=== PATIENT | male | born 1945 ===

== ENCOUNTER 2019-02-25 05:29 | Day surgery (SDC) | payer MEDICARE, MEDICAID ==
--- NOTE | 2019-02-24 11:26 | Opthalmology H&P ---
Ophthalmology H&P H&P Chief Complaint: decreased vision in right eye HPI Vision Affects Ability to: read, manage personal affairs Past Ocular History: glaucoma HPI Narrative Cataract extraction with intraocular lens implant right eye Exam Visual Acuity: OD:20/200 OS:20/25 Tension: OD 16 OS 32 Eye Exam: normal OU: external exam, palpebral fissure-width, marginal reflex distance, levator function, corneas, anterior chambers; findings: lens - pseudo OS, cataract ns OD, fundus exam Assessment/Plan Treatment Plan: cataract extraction w/ lens implant Goals of Treatment: improvement of vision, enhance quality of life Attestation Attestation The risks and benefits of the surgery as well as alternative procedures were explained to the patient in detail. Frederick Perrin MD Feb 24, 2019 11:26
--- NOTE | 2019-02-24 11:28 | Pre-Procedure Note/Attestation ---
Pre-Procedure Note/Attestation Complete Prior to Procedure Planned Procedure: right Procedure Narrative: Cataract extraction with intraocular lens implant right eye Indications for Procedure Pre-Operative Diagnosis: Nuclear sclerotic cataract right eye Attestation I attest that I discussed the nature of the procedure; its benefits; risks and complications; and alternatives (and the risks and benefits of such alternatives ), prior to the procedure, with the patient (or the patient's legal sales utility representative). I attest that, if there was a reasonable possibility of needing a blood transfusion, the patient (or the patient's legal sales utility representative) was given the [facility] standardized written summary, pursuant to the Maxim [place] Blood Safety Act ([place] Health and Safety Code # 1645, as amended). I attest that I re-evaluated the patient just prior to the surgery and that there has been no change in the patient's H&P, except as documented below: Frederick Perrin MD Feb 24, 2019 11:28
[~2019-02-25] VITALS: Ht 175.3 cm; Wt 85.7 kg
[2019-02-25] VITALS (9 sets, daily range): BP systolic 126–141; BP diastolic 67–72
[2019-02-25] MEDS ORDERED: Midazolam 2mg/2ml Inj ONE (05:30)
[2019-02-25] MEDS ORDERED: fentaNYL 100 mcg/2 mL IV ONE (05:30)
[2019-02-25] MEDS: Tropicamide 1% Opth 15ml Soln RIGHT EYE SCH ×3 (06:43→06:58)
[2019-02-25] MEDS: Tobramycin Op Soln 0.3% 5ml RIGHT EYE SCH ×3 (06:43→06:58)
[2019-02-25] MEDS: Cyclopentolate 1% Opth Sol 2ml RIGHT EYE SCH ×3 (06:43→06:59)
[2019-02-25] MEDS: Diclofenac Sod 0.1% Op Soln RIGHT EYE SCH ×3 (06:43→06:58)
[2019-02-25] MEDS: Phenylephrine 10% Opth Soln 5ml RIGHT EYE SCH ×3 (06:44→06:58)
[2019-02-25] MEDS ORDERED: DiphenhydrAMINE 50mg/ml Inj IVP PRN (06:45)
[2019-02-25] MEDS ORDERED: Atropine Sulfate 0.4mg/ml inj IVP PRN (06:45)
[2019-02-25] MEDS ORDERED: Midazolam 2mg/2ml Inj IVP PRN (06:45)
[2019-02-25] MEDS ORDERED: fentaNYL 100 mcg/2 mL IV PRN (06:45)
--- NOTE | 2019-02-25 06:50 | Anethesia Preoperative Eval ---
Anesthesia Pre-op PMH/ROS General Date of Evaluation: Feb 25, 2019 Time of Evaluation: 06:46 Anesthesiologist: ronda ASA Score: ASA 4 Mallampati Score Class I : Soft palate, uvula, fauces, pillars visible Class II: Soft palate, uvula, fauces visible Class III: Soft palate, base of uvula visible Class IV: Only hard plate visible Mallampati Classification: Class II Surgeon: cheryl Diagnosis: nuclear sclerotic cataract right eye Surgical Procedure: cataract extraction w/iol implant right eye Anesthesia History: none Social History: smoking - nonsmoker Family History: no anesthesia problems Allergies: Coded Allergies: CIPROFLOXACIN (Verified Allergy, Severe, 02/24/19) ANAPHYLACTIC SHOCK PENICILLINS (Verified Allergy, Severe, 02/24/19) ANAPHYLACTIC SHOCK Medications: see eMAR Patient NPO?: Yes Past Medical History Cardiovascular: Reports: HTN, other - hypercholsterolemia Gastrointestinal/Genitourinary: Reports: other - bph Neurologic/Psychiatric: Reports: other Endocrine: Reports: DM HEENT: Reports: cataract (R), other - ear infection Anesthesia Pre-op Phys. Exam Physician Exam Last Vital Signs Date Time Temp Pulse Resp B/P (MAP) Pulse Ox O2 Delivery O2 Flow Rate FiO2 02/25/19 06:39 97.1 67 18 134/71 95 Room Air Constitutional: NAD Neurologic: CN 2-12 intact Cardiovascular: RRR Respiratory: CTA Gastrointestinal: S/NT/ND Airway Exam Mallampati Score: Class II MO: limited Neck: decreased rom TMD: 2fb ROM: limited Anesthesia Pre-op A/P Risk Assessment & Plan Assessment: asa4 Plan: mac Status Change Before Surgery: No Pre-Antibiotics Drug: Dixie Lepe MD Feb 25, 2019 06:50
[2019-02-25 06:52] LABS: EOSINOPHILS % (AUTO) 4.9 % (0.0-3.0); HEMATOCRIT 42.8 % (42.0-52.0); HEMOGLOBIN 14.6 G/DL (14.2-18.0); LYMPHOCYTES % (AUTO) 27.2 % (20.0-45.0); MEAN CORPUSCULAR VOLUME 91 FL (80-99); MONOCYTES % (AUTO) 8.6 % (1.0-10.0); NEUTROPHILS % (AUTO) 58.3 % (45.0-75.0); PLATELET COUNT 162 K/UL (150-450); RED BLOOD COUNT 4.72 M/UL (4.70-6.10); RED CELL DISTRIBUTION WIDTH 12.5 % (11.6-14.8); WHITE BLOOD COUNT 6.2 K/UL (4.8-10.8)
[2019-02-25] MEDS ORDERED: GABAPENTIN300 MG ORAL (06:57)
[2019-02-25] MEDS ORDERED: LANTUS SOL100 UNIT/1 SUBQ (06:57)
[2019-02-25] MEDS ORDERED: CARDURA4 MG ORAL (06:57)
[2019-02-25] MEDS ORDERED: AMLODIPINE BESYL5 MG ORAL (06:57)
[2019-02-25] MEDS ORDERED: METFORMIN HCL500 M1 ORAL (06:57)
[2019-02-25] MEDS ORDERED: LISINOPRIL10 MG ORAL (06:57)
[2019-02-25] MEDS ORDERED: ATORVASTATIN CA20 MG ORAL (06:57)
[2019-02-25] MEDS ORDERED: Proparacaine 0.5% Opth Soln 15ml RIGHT EYE ONE (07:00)
[2019-02-25] MEDS ORDERED: Polysporin Opth Oint 3.5gm ONE (07:00)
[2019-02-25] MEDS ORDERED: Pred Forte 1% Opth Susp 1ml ONE (07:00)
[2019-02-25] MEDS ORDERED: Akten 3.5% 1ml Btl RIGHT EYE ONE (07:00)
[2019-02-25] MEDS ORDERED: Pilocarpine 1% Opth 15ml Soln ONE (07:00)
[2019-02-25] MEDS ORDERED: Tetracaine 0.5% Opth 4ml Soln RIGHT EYE ONE (07:00)
[2019-02-25 07:08] LABS: ANION GAP 9 mmol/L (5-15); BLOOD UREA NITROGEN 18 mg/dL (7-18); CALCIUM 9.6 MG/DL (8.5-10.1); CARBON DIOXIDE 26 MMOL/L (21-32); CHLORIDE 105 MMOL/L (98-107); CREATININE 1.2 MG/DL (0.55-1.30); POTASSIUM 3.8 MMOL/L (3.5-5.1); SODIUM 140 MMOL/L (136-145)
[2019-02-25] MEDS ORDERED: EPINEPHrine 1mg/1ml Amp ONE (07:44)
[2019-02-25] MEDS ORDERED: Povidone-Iodine 5% opth solution ONE (07:45)
[2019-02-25] MEDS ORDERED: BSS 500ml btl ONE (07:45)
[2019-02-25] MEDS ORDERED: Lidocaine 1% MPF 10mg/ml 5ml ONE (07:45)
[2019-02-25] MEDS ORDERED: Sodium Hyaluronate 14 mg/ml 0.85ml ONE (07:45)
[2019-02-25] MEDS ORDERED: BSS 15ml BTL ONE (07:45)
[2019-02-25] MEDS ORDERED: Dexamethasone 4mg/ml vial ONE (07:45)
--- NOTE | 2019-02-25 08:30 | Pre-op HX & Phy Repo 2 SIG ---
DATE OF ADMISSION: 02/25/2019 PRESURGICAL INTERNAL MEDICINE HISTORY AND PHYSICAL DATE OF SURGERY: 02/25/2019. REASON FOR EVALUATION: I was asked by Dr. Frederick Perrin to see this 73-year-old male, who is going for elective surgery on the right eye. The patient has a cataract, right eye. The patient was evaluated. Chart was reviewed at the Outpatient's Procedure Department. The patient is alert. PAST MEDICAL HISTORY: Remarkable for insulin-dependent diabetes mellitus, hypertension, history of benign prostatic hypertrophy, renal insufficiency stage II. No history of heart attack, chest pain, or palpitation. Denies history of stroke or seizures. No history of pulmonary problem. No history of GI problem. Denies history of thyroid problem or hepatitis. The patient was active and alert. SURGICAL HISTORY: Cataract, left eye and multiple laser procedures on the eye and vitrectomy. PRESENT MEDICATIONS: Include Lantus 30 units daily, metformin, lisinopril 5 mg daily, Cardura, calcium and magnesium supplement, fish oil, multivitamins, , and atorvastatin. ALLERGIES: The patient has history of allergy to penicillin and Cipro. FAMILY HISTORY: Both parents from complication of hypertension. HABITS: The patient denies history of smoke. Alcohol, [address]. PHYSICAL EXAMINATION: VITAL SIGNS: Blood pressure 134/71, temperature 97.7, pulse 67, respirations 18, and O2 saturation 95%. GENERAL: The patient is alert. SKIN: Clear, dry, and warm. No rashes. No lymph node enlargement. HEENT: Head, normocephalic and atraumatic. Ears, clear. No discharge. Eyes, full description per Dr. Frederick Perrin. Mouth, clear and moist. Tongue midline. Wears upper and lower dentures. NECK: Supple. No jugular venous distention. Carotids artery +2. Trachea midline. CHEST: No deformity or asymmetry. LUNGS: Clear to auscultation to percussion. No rales or rhonchi. HEART: Regular rate. No ectopy. No murmur. No S3, S4. ABDOMEN: Soft and benign. Liver and spleen are not enlarged. No rebound. EXTREMITIES: No peripheral edema or calf tenderness. No asymmetry. Peripheral pulse +2 on the arterial studies. NEURO SYSTEM: No asymmetry. No tremor. No nystagmus. DIAGNOSTIC DATA: Electrocardiogram done in December 2018, normal sinus rhythm, 80 beats per minute, normal ECG. Laboratory today, fasting blood sugar 103 mg/dL. Chemistry pending. The patient did not eat or drink from last night. IMPRESSION: 1. Nuclear sclerotic cataract, right eye. 2. Insulin-dependent diabetes mellitus, controlled. 3. Hypertension, controlled. 4. Benign prostatic hypertrophy. 5. Chronic kidney disease stage 2. PLAN: Cataract extraction, right eye with intraocular lens implant per Dr. Frederick Perrin. CONCLUSION: The patient has a 73-year-old male with multiple medical problems including insulin-dependent diabetes, complicated with chronic kidney disease stage 2 and history of hypertension, controlled. The patient is NPO. Normal electrocardiogram. The patient's condition optimized for surgery today. Thank you very much, Dr. Perrin, for the privilege to participate in presurgical care of this interesting patient. Eduardo Larios M.D. DR: RENE JOB#: [id number] CC:
[2019-02-25] MEDS ORDERED: Lidocaine 4% Amp ONE (08:56)
[2019-02-25] MEDS ORDERED: acetaZOLAMIDE 500mg Inj ONE (08:57)
[2019-02-25] MEDS ORDERED: NS Irrig 1000ml ONE (09:00)
[2019-02-25] MEDS ORDERED: Sterile Water Irrig 1000ml IRRIG ONE (09:00)
[2019-02-25] MEDS ORDERED: LR 1000ml ONE (09:00)
--- NOTE | 2019-02-25 09:55 | 48 Hour Post Anesthesia Eval ---
Post Anesthesia Evaluation Procedure: cataract extraction w/iol implant right eye Date of Evaluation: Feb 25, 2019 Time of Evaluation: 09:38 Blood Pressure Systolic: 133 0: 68 Pulse Rate: 70 Respiratory Rate: 18 Temperature (Fahrenheit): 97.1 O2 Sat by Pulse Oximetry: 95 Airway: patent Nausea: No Vomiting: No Pain Intensity: 0 Hydration Status: adequate Cardiopulmonary Status: stable Mental Status/LOC: patient returned to baseline Post-Anesthesia Complications: none Follow-up care needed: N/A Dixie Whyte MD Feb 25, 2019 09:55
--- NOTE | 2019-02-25 09:55 | Immediate Post-Op Evaluation ---
Immediate Post-Op Evalulation Immediate Post-Op Evalulation Procedure: cataract extraction w/iol implant right eye Date of Evaluation: Feb 25, 2019 Time of Evaluation: 09:36 IV Fluids: 200ml lr Blood Products: none Estimated Blood Loss: negligible Blood Pressure Systolic: 141 Blood Pressure Diastolic: 72 Pulse Rate: 74 Respiratory Rate: 18 O2 Sat by Pulse Oximetry: 95 Temperature (Fahrenheit): 97.1 Pain Score (1-10): 0 Nausea: No Vomiting: No Complications none Patient Status: awake, reacts, patent Hydration Status: adequate Drug: Dixie Lepe MD Feb 25, 2019 09:55
--- NOTE | 2019-02-28 10:39 | Brief Operative Note ---
Immediate Post Operative Note Operative Note Chief Complaint: blurry vision right eye Pre-op Diagnosis: Nuclear sclerotic cataract right eye Procedure: Cataract extraction with intraocular lens implant right eye Post-op Diagnosis: Pseudophakia right eye Post-op Diagnosis: same as pre-op Surgeon: Frederick Perrin MD Anesthesiologist: Dixie Anderson MD Anesthesia: MAC Specimen: none Complications: none Condition: stable Fluids: LR Estimated Blood Loss: none Drains: none Implant(s) used?: Yes - IOL-OD Frederick Perrin MD Feb 28, 2019 10:39
--- NOTE | 2019-02-28 11:24 | Operative Note - PDOC ---
Operative Note Operative Note Date of Operation/Procedure: Feb 25, 2019 Chief Complaint: blurry vision right eye Pre-op Diagnosis: Nuclear sclerotic cataract right eye Procedure: Cataract extraction with intraocular lens implant right eye Post-op Diagnosis: Pseudophakia right eye Post-op Diagnosis: same as pre-op Surgeon: Frederick Perrin MD Anesthesiologist: Dixie Anderson MD Anesthesia: MAC Specimen: none Complications: none Condition: stable Fluids: LR Estimated Blood Loss: none Drains: none Implant(s) used?: Yes - IOL-OD Indications for Procedure Nuclear sclerotic cataract right eye Description of Procedure This patient has been complaining visually significant cataract in the right eye with the best corrected visual acuity of 20/200 under moderate glare conditions worse. The patient complains of difficulties with glare in performing activities of daily living and wants to manage personal affairs with comfort and accuracy and see well enough to move with safety at home and outdoors. The risks, benefits and alternatives of the procedure were discussed with the patient in the office prior to scheduling surgery. All questions from the patient were answered after the surgical procedure was explained in detail. The risks of the procedure as explained to the patient include, but are not limited to, pain, infection, bleeding, loss of vision, retinal detachment, need for further surgery, loss of lens nucleus, double vision, etc. Alternative procedures were discussed which include, to do nothing or seek a second opinion. Informed consent for this procedure was obtained from the patient. The patient was referred to a primary care physician for a cardiopulmonary clearance prior to surgery, after proper evaluation was done patient was properly scheduled for outpatient surgery. The patient was brought to the operating room where the anesthesiologist established I.V. lines and cardiac monitoring leads. Mild intravenous sedation was administered. The patient was then prepared with a 5% solution of povidone -iodine to the conjunctival fornix and lashes, and a 5% solution of povidone- iodine to the lids and periorbital skin. The patient was then draped in the usual sterile fashion. A lid speculum was then placed in the operative eye. A keratome blade was then used to create a biplanar incision into the anterior chamber. Viscoelastics was then instilled into the anterior chamber. A capsulorrhexis was then fashioned with an utrata forceps A G 27 cannula was used to hydrodissect and hydro delineate the lens nucleus. Paracentesis incision was made at 3 o'clock with sharp blade. The phacoemulsification unit, after being properly adjusted and tested, was then used to emulsify the nucleus. Residual cortical material was aspirated with the irrigation and aspiration unit. Healon was then instilled into the anterior chamber. The corneal wound was then enlarged to the size of the optic with the mily keratome blade. The intraocular lens was then inspected for right power and size and thought to be satisfactory. Then the lens was gently placed in the capsular bag. Positioning within the capsular bag was confirmed by direct visualization. Optic centration was accomplished with a Sinskey hook. Viscoelastics was removed from the anterior chamber using the irrigation and aspiration unit. The corneal wound was then tested for leaks and none were found. The lid speculum were then removed. Sponge and needle counts were correct. An eye patch and shield were placed over the operative eye. The patient was taken to the recovery room in stable condition. There were no complications. The patient tolerated the procedure well. The patient was then transferred to the ambulatory surgery unit in stable and satisfactory condition , was given detailed written instructions and asked to follow up in the office the next day. Frederick Perrin MD Feb 28, 2019 11:24
== END 2019-02-25 10:30 | disposition home or self-care (01) ==
LOC: SUR 05:29
DX: H25.11 Age-related nuclear cataract, right eye (principal); I12.9 Hypertensive chronic kidney disease with stage 1 through stage 4 chronic kidney disease, or unspecified chronic kidney disease; E11.22 Type 2 diabetes mellitus with diabetic chronic kidney disease; N18.2 Chronic kidney disease, stage 2 (mild); Z79.84 Long term (current) use of oral hypoglycemic drugs; Z79.899 Other long term (current) drug therapy; N40.0 Benign prostatic hyperplasia without lower urinary tract symptoms; Z88.0 Allergy status to penicillin; Z88.8 Allergy status to other drugs, medicaments and biological substances; E78.00 Pure hypercholesterolemia, unspecified
CPT/HCPCS: 36415; 66984; 80048; 82962; 85025; J0171; J1100; J2250; J3010; J3370; V2632; 94003; 94150